=== PATIENT | female | born 1980 | race African-American/Black ===

== ENCOUNTER 2016-11-29 22:36 | Emergency (ER) | payer OTHER ==
[~2016-11-29] VITALS: Ht 167.6 cm; Wt 60.0 kg
[~2016-11-29 22:36] MED LIST: CEPH500 PO
[2016-11-29 22:38] VITALS: BP 132/65; PULSE 89; RESP 16; TEMP 98.5; O2SAT 100
[2016-11-29] MEDS ORDERED: ACETAMINOPHEN/HYDROcodone 325 MG/5 MG TAB PO ONE (23:15)
[2016-11-29] MEDS ORDERED: DICL75TA PO (23:15)
[2016-11-29] MEDS ORDERED: AMOXICILLIN (TRIHYDRATE) 500 MG CAP PO ONE (23:15)
[2016-11-29] MEDS ORDERED: AMOX500C PO (23:15)
--- NOTE | 2016-11-29 23:21 | PD ---
HPI Chief Complaint: Oral / Dental Pain or Problem Time Seen by Provider: 23:10 Travel History International Travel<30 days: No Contact w/Intl Traveler<30days: No Traveled to known affect area: No History of Present Illness HPI 35-year-old black female presents emergency Department with complaints of dental pain and right lower gingival swelling over last few days. Pain is mild- to-moderate. She denies any fever or chills. PFSH Past Medical History Medical History: Denies Significant Hx Diminished Hearing: No Integumentary: Yes (ecema) Tetanus Vaccination: < 5 Years ?: Not LMP: 11/24/2016 : 3 Para: 3 Miscarriage: 3 : 3 Tubal Ligation: Yes (2010) Past Surgical History Gynecologic Surgery: Yes (TUBAL LIGATION) Tonsillectomy: Yes Social History Alcohol Use: No Tobacco Use: No Substance Use: No Allergies-Medications (Allergen,Severity, Reaction): Coded Allergies: No Known Allergies (Verified , 11/29/16) Reported Meds & Prescriptions Reported Meds & Active Scripts Active Review of Systems Except as stated in HPI: all other systems reviewed are Neg Physical Exam Narrative GENERAL: Well-developed, well-nourished in no acute distress. Nontoxic appearing. HEAD: Normocephalic, atraumatic. EYES: Pupils equal round and reactive. Extraocular motions intact. No scleral icterus. No injection or drainage. ENT: TMs clear without erythema. The external auditory canals clear. Nose: clear . Posterior pharynx is pink and moist. No tonsillar edema or exudate. Uvula midline. Airway patent. Patient complains of pain to her right lower tooth #29. She has a area of swelling to the buccal gingiva. It is unclear whether this is a mucocele or a abscess NECK: Trachea midline.Supple, nontender, moves head freely. No central bony tenderness or spasm. CARDIOVASCULAR: Regular rate and rhythm without murmurs, gallops, or rubs. RESPIRATORY: Clear to auscultation. Breath sounds equal bilaterally. No wheezes , rales, or rhonchi. GASTROINTESTINAL: Abdomen soft, non-tender, nondistended. No hepato-splenomegaly , or palpable masses. No guarding. EXTREMITIES: No clubbing, cyanosis, or edema. No joint tenderness, effusion, or edema noted. BACK: Nontender without deformity or crepitance. No flank tenderness. Data Data Last Documented VS Vital Signs Date Time Temp Pulse Resp B/P (MAP) Pulse Ox O2 Delivery O2 Flow Rate FiO2 11/29/16 22:38 98.5 89 16 132/65 (87) 100 Orders Orders Amoxicillin (Trimox) (11/29/16 23:15) Acetamin-Hydrocod 325-5 Mg ([place] 5-325 (11/29/16 23:15) MDM Medical Decision Making Medical Screen Exam Complete: Yes Emergency Medical Condition: Yes Medical Record Reviewed: Yes Differential Diagnosis MDM: Moderate Differential diagnoses: Dental abscess, dental caries, osteitis, cellulitis Narrative Course This is dental abscess. Patient given amoxicillin 500 and Lortab 5 milligram by mouth Diagnosis Primary Impression: Dental abscess Patient Instructions: Narcotic given in the ED, General Instructions Additional Instructions: Rest. Saltwater gargles. Withams oil on cotton balls. Diclofenac and amoxicillin. follow-up with a dentist as soon as possible. And return to the ER if any problems. Med/Other Pt SpecificInfo: Prescription(s) given Scripts Diclofenac Sodium DR (Diclofenac Sodium DR) 75 Mg Tabdr 75 MG PO BID, #14 TAB 0 Refills Prov: Mark Owens MD 11/29/16 Amoxicillin (Amoxicillin) 500 Mg Cap 500 MG PO TID for Infection, #30 CAP 0 Refills Prov: Mark Owens MD 11/29/16 Disposition: 01 DISCHARGE HOME Condition: Stable Jairon Robin Nov 29, 2016 23:21
== END 2016-11-29 23:33 | disposition home or self-care (01) ==
LOC: NEPK 22:36
DX: K04.7 Periapical abscess without sinus (principal)
CPT/HCPCS: 99283

== ENCOUNTER 2017-03-12 12:03 | Emergency (ER) | payer OTHER ==
[~2017-03-12] VITALS: Ht 167.6 cm; Wt 60.0 kg
[~2017-03-12 12:03] MED LIST changes: +AMOX500C PO; -CEPH500 PO; +DICL75TA PO
[2017-03-12 12:06] VITALS: BP 114/70; PULSE 67; RESP 18; TEMP 98.3; O2SAT 99
--- NOTE | 2017-03-12 12:37 | PD ---
Physical Exam Time Seen by Provider: 12:35 Narrative 36yo F c/o left sided mid back spams since this morning. Denies injury. Has had back spasms like this before. Denies fever, vomiting. Pain is worse with movement. Denies dysuria. Patient seen in triage. VS reviewed. Awaiting bed placement. See next providers note for final patient disposition. Data Data Last Documented VS Vital Signs Date Time Temp Pulse Resp B/P (MAP) Pulse Ox O2 Delivery O2 Flow Rate FiO2 03/12/17 12:06 98.3 67 18 114/70 (85) 99 Room Air MDM Supervised Visit with NOA: Mahnaz Morales Mar 12, 2017 12:37
[2017-03-12] MEDS ORDERED: IBUP1TAB7 PO (13:57)
[2017-03-12] MEDS ORDERED: ROBA500T PO (13:57)
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
[2017-03-12] MEDS ORDERED: ORPHENADRINE INJ 60 MG/2 ML AMP IM ONE (14:00)
[2017-03-12] MEDS ORDERED: KETOROLAC TROMETHAMINE 60 MG/2 ML (IM) VIAL IM ONE (14:00)
== END 2017-03-12 14:25 | disposition home or self-care (01) ==
LOC: NEPK 12:03
DX: M62.830 Muscle spasm of back (principal)
CPT/HCPCS: 96372; 99284; J1885; J2360